=== PATIENT | female | born 1995 | race Caucasian/White ===

== ENCOUNTER 2020-06-25 06:24 | Emergency (ER) | payer BC ==
[~2020-06-25] VITALS: Ht 165.1 cm; Wt 56.1 kg
[2020-06-25] MEDS ORDERED: ONDANSETRON 2MG/ML, 2ML ONE (06:44)
[2020-06-25 07:00] LABS: MICROSCOPIC INDICATED
[2020-06-25] MEDS ORDERED: ONDANSETRON 2MG/ML, 2ML IVPush ONE (07:00)
[2020-06-25] MEDS ORDERED: SODIUM CHLORIDE 0.9% 1,000ML IVBOLUS ONE (07:00)
[2020-06-25] MEDS ORDERED: SODIUM CHLORIDE FLUSH 10ML SYR IVF ONE (07:00)
[2020-06-25 07:01] LABS: BASOPHILS # (AUTO) 0.04 x10^3/uL (0-0.1); BASOPHILS % (AUTO) 1 % (0-1); EOSINOPHILS # (AUTO) 0.08 x10^3/uL (0-0.4); EOSINOPHILS % (AUTO) 1 % (1-7); LYMPHOCYTES # (AUTO) 2.73 x10^3/uL (1-3.4); LYMPHOCYTES % (AUTO) 34 % (22-44); MD NO; MEAN CORPUSCULAR HEMOGLOBIN 28.5 pg (27.0-34.8); MEAN CORPUSCULAR HGB CONC 32.5 g/dL (32.4-35.8); MEAN CORPUSCULAR VOLUME 87.7 fL (80-100); MEAN PLATELET VOLUME 8.1 fL (7.4-10.4); MONOCYTES # (AUTO) 0.53 x10^3/uL (0.2-0.8); MONOCYTES % (AUTO) 7 % (2-9); NEUTROPHILS # (AUTO) 4.68 x10^3/uL (1.8-6.8); NEUTROPHILS % (AUTO) 58 % (42-75); PLATELET COUNT 277 x10^3/uL (130-400); RED CELL DISTRIBUTION WIDTH 12.6 % (9.6-15.2)
--- NOTE | 2020-06-25 07:02 | NUR ---
BEDSIDE REPORT GIVEN TO LUCIANO LEWIS. PT SITTING IN BED, CONNECTED TO BP AND O2 MONITORS, RESPIRATIONS EVEN AND UNLABORED, NO SIGNS OF DISTRESS, CALL LIGHT IN REACH.
[2020-06-25 07:08] LABS: ALANINE AMINOTRANSFERASE 33 U/L (12-78); ALBUMIN 3.9 g/dL (3.4-5.0); ANION GAP 7 mmol/L (5-15); CALCIUM 8.9 mg/dL (8.5-10.1); CHLORIDE 106 mmol/L (98-107); CREATININE 0.98 mg/dL (0.55-1.02)
[2020-06-25 07:11] LABS: ALKALINE PHOSPHATASE 74 U/L (45-117); BILIRUBIN,TOTAL 0.8 mg/dL (0.2-1.0); TOTAL PROTEIN 8.1 g/dL (6.4-8.2)
[2020-06-25 08:23] LABS: MICROSCOPIC AUTO
--- NOTE | 2020-06-25 09:53 | NUR ---
PT REPORT FROM LUCIANO LEWIS; IV DC'D PER [facility] RN STUDENT; PT TO BE DC'D.
[2020-06-25] MEDS ORDERED: BIRTH CONTROL PO (10:06)
[2020-06-25 10:07] VITALS: BP 109/65
== END 2020-06-25 10:18 | disposition home or self-care (01) ==
LOC: ED 06:59
DX: R10.84 Generalized abdominal pain (principal); R10.31 Right lower quadrant pain; R11.2 Nausea with vomiting, unspecified; R30.0 Dysuria; M54.5 Low back pain
CPT/HCPCS: 36415; 76770; 80053; 81001; 81025; 85025; 87086; 96361; 96374; 99284; J2405; J7030